=== PATIENT | female | born 1990 | race Caucasian/White ===

== ENCOUNTER 2019-09-13 17:59 | Outpatient (CLI) | payer OTHER ==
--- NOTE | 2019-09-14 07:19 | RAD ---
LUMBAR SPINE 3 VIEWS: Date: 09/13/2019 Comparison made with the 01/11/13 scoliosis series. Lumbar scoliosis convex left is present as usual. The angle of curvature today was measured at 17 deg schuyler, compared to 25 degrees previously. No fracture, dislocation, or significant bony change seen. T he disc spaces are normal in height, though it is particularly hard to assess the L5-S1 disc space du e to the scoliosis. SI joints were unremarkable. Hip joints were unremarkable. An IUD is noted in the midline of the pelvis. IMPRESSION: Lumbar scoliosis, but no acute bony findings. POS: HOME
== END 2019-09-13 18:00 | disposition home or self-care (01) ==
LOC: BURRAD 17:59
PROVIDERS: ATTEND Family Medicine
DX: M54.16 Radiculopathy, lumbar region (principal); M41.9 Scoliosis, unspecified
CPT/HCPCS: 72100